=== PATIENT | male | born 1995 | race African-American/Black ===

== ENCOUNTER 2019-05-12 11:33 | Emergency (ER) | payer SELFPAY ==
[2019-05-12 11:45] VITALS: BP 112/73; PULSE 59; TEMP 97.9; BMI 24.0
--- NOTE | 2019-05-12 11:49 | PDOC ---
History of Present Illness <Nicolas Hummel - Last Filed: 05/12/19 12:39> - General History Source: Patient Exam Limitations: No Limitations - History of Present Illness Initial Comments: 05/12/19 11:43 Que Ames is an otherwise healthy 24M presenting with blurry vision after getting scratched in the eye. Was playing basketball yesterday afternoon, collision with another player, opponent's finger scratched left eye. Since then, has had pain in the left eye with some blurry vision and tearing. Denies any facial trauma, bloody nose, dental injury, headache, nausea, vomiting, fever, or facial pain. Seen by nurse at [facility], referred to ED for corneal abrasion. Normally has good vision , does not wear contact lenses. <Ugo Elias - Last Filed: 05/12/19 18:51> - General Chief Complaint: Eye Problem Stated Complaint: left eye injury Time Seen by Provider: 05/12/19 11:42 Past History <Nicolas Hummel - Last Filed: 05/12/19 12:39> - Past Medical History COPD: No - Psycho Social/Smoking Cessation Hx Smoking History: Never smoked Have you smoked in the past 12 months: No Hx Alcohol Use: No Substance Use Type: None <Ugo Elias - Last Filed: 05/12/19 18:51> - Past Medical History Allergies/Adverse Reactions: Allergies Allergy/AdvReac Type Severity Reaction Status Date / Time No Known Allergies Allergy Verified 05/12/19 11:41 Home Medications: Ambulatory Orders Ofloxacin 0.3% Ophth Soln [Ocuflox -] 1 drop OS Q6H #1 bottle 05/12/19 Review of Systems - Review of Systems Constitutional: No: Symptoms Reported HEENTM: Yes: Eye Pain, Blurred Vision, Tearing Respiratory: No: Symptoms reported Cardiac (ROS): No: Symptoms Reported ABD/GI: No: Symptoms Reported : No: Symptoms Reported Musculoskeletal: No: Symptoms Reported Integumentary: No: Symptoms Reported Neurological: No: Symptoms reported Endocrine: No: Symptoms Reported Hematologic/Lymphatic: No: Symptoms Reported All Other Systems: Reviewed and Negative <Ugo Elias - Last Filed: 05/12/19 18:51> *Physical Exam - Vital Signs Last Vital Signs Temp Pulse Resp BP Pulse Ox 97.9 F 59 L 18 112/73 100 05/12/19 11:41 05/12/19 11:41 05/12/19 11:41 05/12/19 11:41 05/12/19 11:41 <EstephanieNicolas - Last Filed: 05/12/19 12:39> - Physical Exam Comments: 05/12/19 18:44 Ophthalmologic Exam: EOMI PERRL visual mak intact to finger test blurry vision to L eye acuity OD: 02/20, OS 20/200 L eye has scleral injection with tearing no evidence of other injury to eye, no foreign bodies under eyelids fluorescein test shows 1mm linear corneal abrasion to 8 o'clock position towards pupil A/O x4, NAD, NCAT, conversing normally Heart RRR no MGR Lungs CTAB Abd soft, non-tender HEENT no facial bone deformity or tenderness, no jaw misalignment General Appearance: Yes: Nourished, Appropriately Dressed. No: Apparent Distress HEENT: positive: EOMI, TERE, Symmetrical, Pharynx Normal, Hearing Grossly Normal. negative: Photophobia, Scleral Icterus (R), Scleral Icterus (L), Pharyngeal Erythema, Tonsillar Exudate, Tonsillar Erythema, Excessive drooling Neck: positive: Supple. negative: Tender, Rigid, Lymphadenopathy (R), Lymphadenopathy (L) Respiratory/Chest: positive: Lungs Clear, Normal Breath Sounds. negative: Chest Tender, Respiratory Distress, Accessory Muscle Use Cardiovascular: positive: Regular Rhythm, Regular Rate Gastrointestinal/Abdominal: positive: Normal Bowel Sounds, Flat, Soft. negative : Tender, Guarding, Rebound Musculoskeletal: positive: Normal Inspection. negative: CVA Tenderness Extremity: positive: Normal Capillary Refill, Normal Inspection, Normal Range of Motion, Pelvis Stable. negative: Tender, Pedal Edema, Swelling Integumentary: positive: Normal Color, Dry, Warm Neurologic: positive: Fully Oriented, Alert, Normal Mood/Affect, Normal Response <Ugo Elias - Last Filed: 05/12/19 18:51> ED Treatment Course - Medications Given in the ED: ED Medications Discontinued Medications Generic Name Dose Route Start Last Admin Trade Name Freq PRN Reason Stop Dose Admin Fluorescein Sodium 1 ea 05/12/19 11:51 05/12/19 11:56 Fluorets - OS 05/12/19 11:52 1 ea ONCE ONE Administration Tetracaine HCl 1 drop 05/12/19 11:51 05/12/19 11:56 Tetravisc 0.5% Eye Drops - OS 05/12/19 11:52 1 drop ONCE ONE Administration <Estephanie,Nicolas - Last Filed: 05/12/19 12:39> Medical Decision Making - Medical Decision Making 05/12/19 11:43 Que Ames is an otherwise healthy 24M presenting with blurry vision after getting scratched in the eye. Presentation is consistent with corneal abrasion after traumatic injury. Evaluation with fluorescein shows 1mm linear ulcer to eye, with blurry vision and decreased acuity L eye, but remaining ocular exam is WNL, consistent with mild corneal abrasion. Does not wear contact lenses. Patient stable to be discharged home with ofloxacin eye drops and opthalmology follow-up if needed. <Ugo Elias - Last Filed: 05/12/19 18:51> Discharge <Nicolas Hummel - Last Filed: 05/12/19 12:39> - Discharge Information Problems reviewed: Yes - Admission No <Ugo Elias - Last Filed: 05/12/19 18:51> - Discharge Information Clinical Impression/Diagnosis: Corneal abrasion, left Qualifiers: Encounter type: initial encounter Qualified Code(s): S05.02XA - Injury of conjunctiva and corneal abrasion without foreign body, left eye, initial encounter Condition: Stable Disposition: HOME - Additional Discharge Information Prescriptions: Ofloxacin 0.3% Ophth Soln [Ocuflox -] 1 drop OS Q6H #1 bottle - Follow up/Referral Referrals: Devon Rodriguez MD [Staff Physician] - - Patient Discharge Instructions Patient Printed Discharge Instructions: DI for Corneal Abrasion Additional Instructions: Today you were evaluated for an abrasion to your left eye. We have evaluated your eye and have found a small abrasion to your eye. You have no concerning vision changes that need immediate intervention, but we are giving you some eye drops to prevent infection. If you experience pain, please use Tylenol or Motrin as instructed on the bottle. Your eye pain and vision blurriness should resolve in the next 2 days. If not, please see an opthalmologist as we have referred you. If you experience nausea, vomiting, worsening vision, eye pain, bleeding or pus in your eye, or any other new or concerning symptoms, please return to the emergency room. - Post Discharge Activity Work/Back to School Note: Back to School
[2019-05-12] MEDS ORDERED: TETRACAINE 0.5% HCL 0.6ML DROPPER.BOTTLE OS ONE (11:51)
[2019-05-12] MEDS ORDERED: TETRACAINE 0.5% OPHTH SOLN 2 ML BOTTLE ONE (11:51)
[2019-05-12] MEDS ORDERED: FLUORESCEIN NA 1 EA STRIP OS ONE (11:51)
[2019-05-12] MEDS ORDERED: FLUORESCEIN NA 1 EA STRIP ONE (11:51)
--- NOTE | 2019-05-12 12:00 | PDOC ---
Attending Attestation - Resident Resident Name: Ugo Elias - ED Attending Attestation I have performed the following: I have examined & evaluated the patient, The case was reviewed & discussed with the resident, I agree w/resident's findings & plan, Exceptions are as noted - HPI HPI: 05/12/19 12:12 24y M no pmhx prseents with L eye pain, blurry vision and photophobia sp being scratched yesterday while planing basketball. Pt states as he went up for the ball, someones finger struck his eye. Pt does not wwear corrective lenses. Physicial Exam: EYE: EOMI, mildly injected, +fllourisciene accumulation 8 oclock on margin of cornea. +abrasion will give oflaxacin gtt motrin/tylenol for pain optho fu - Physicial Exam PE: 05/12/19 18:21 see above - Medical Decision Making 05/12/19 18:21 dominga carroll
== END 2019-05-12 12:50 | disposition home or self-care (01) ==
LOC: FER 11:33
DX: S05.02XA Injury of conjunctiva and corneal abrasion without foreign body, left eye, initial encounter (principal); X58.XXXA Exposure to other specified factors, initial encounter; Y93.89 Activity, other specified; Y92.89 Other specified places as the place of occurrence of the external cause
CPT/HCPCS: 99281-25